=== PATIENT | male | born 1930 | race Caucasian/White ===

== ENCOUNTER 2018-11-03 11:16 | Inpatient (IN) | payer MEDICARE, OTHER, BC ==
[2018-11-03] MEDS: SOD CHLORIDE 0.9% 500 ML IV (11:47)
[2018-11-03 11:52] LABS: ADD MAN DIFF? NO
[2018-11-03 11:54] LABS: WHITE BLOOD COUNT 15.4 10^3/ul (4.8-10.8)
[2018-11-03 11:54] LABS: ABNORMAL IP MESSAGE 1; BASOPHIL # 0.1 10^3/ul (0.0-0.1); BASOPHILS % 0.5 % (0.0-2.0); HEMATOCRIT 34.2 % (42.0-52.0); LYMPHOCYTES # 0.4 10^3/ul (0.8-2.9); LYMPHOCYTES % 2.3 % (15.0-51.0); MEAN CORPUSCULAR HEMOGLOBIN 32.1 pg (29.0-33.0); MEAN CORPUSCULAR HGB CONC 32.2 g/dl (32.0-37.0); MEAN CORPUSCULAR VOLUME 99.7 fl (82.0-101.0); MEAN PLATELET VOLUME 10.6 fl (7.4-10.4); MONOCYTES % 6.2 % (0.0-11.0); NEUTROPHIL # 13.9 10^3/ul (1.6-7.5); NEUTROPHILS % 90.1 % (39.0-77.0); PLATELET COUNT 119 10^3/UL (140-415); POSITIVE DIFF @See below; RED BLOOD COUNT 3.43 10^6/ul (4.70-6.10); RED CELL DISTRIBUTION WIDTH 17.4 % (11.5-14.5)
[2018-11-03 12:12] LABS: ANION GAP 9 (5-13); BLOOD UREA NITROGEN 37 mg/dl (7-20); CALCIUM 8.7 mg/dl (8.4-10.2); CARBON DIOXIDE 19 mmol/L (21-31); CHLORIDE 109 mmol/L (97-110); CREATININE 2.25 mg/dl (0.61-1.24); GLUCOSE 133 mg/dl (70-220); SODIUM 137 mmol/L (135-144)
[2018-11-03 12:24] LABS: TROPONIN-I 0.021 ng/ml (0.000-0.120)
[2018-11-03] MEDS: METOPROLOL 5 MG INJ IV ×3 (13:02→13:10)
[2018-11-03] MEDS ORDERED: ONDANSETRON 4 MG INJ IV (14:00)
[2018-11-03 16:43] LABS: FREE T4 (FREE THYROXINE) 1.09 ng/dl (0.85-1.93)
[2018-11-03] MEDS: ACETAMINOPHEN 325 MG TAB PO (18:20)
[2018-11-03] MEDS ORDERED: METOPROLOL 25 MG TAB PO (21:00)
[2018-11-03] MEDS: DILTIAZEM-D5W 125MG/125ML DRIP 125 ML IV (21:35)
[2018-11-03] MEDS: DEXTROSE 5%-0.45% NACL 1,000 ML IV (21:35)
[2018-11-03] MEDS: ATORVASTATIN 10 MG TAB PO (21:53)
[2018-11-03] MEDS: TAMSULOSIN (SR) 0.4 MG CAP PO (21:54)
[2018-11-03] MEDS: metroNIDAZOLE 250 MG TAB PO (21:54)
[2018-11-03] MEDS: CYANOCOBALAMIN 100 MCG TAB PO (22:00)
[2018-11-03] MEDS: FINASTERIDE 5 MG TAB PO (22:00)
[2018-11-03] MEDS: ALLOPURINOL 100 MG TAB PO (22:00)
[2018-11-04 05:33] LABS: WHITE BLOOD COUNT 10.8 10^3/ul (4.8-10.8)
[2018-11-04 05:33] LABS: HEMATOCRIT 28.3 % (42.0-52.0); MEAN CORPUSCULAR HEMOGLOBIN 31.7 pg (29.0-33.0); MEAN CORPUSCULAR HGB CONC 31.8 g/dl (32.0-37.0); MEAN CORPUSCULAR VOLUME 99.6 fl (82.0-101.0); MEAN PLATELET VOLUME 10.6 fl (7.4-10.4); PLATELET COUNT 105 10^3/UL (140-415); POSITIVE DIFF @See below; RED BLOOD COUNT 2.84 10^6/ul (4.70-6.10); RED CELL DISTRIBUTION WIDTH 17.4 % (11.5-14.5)
[2018-11-04 05:49] LABS: ADD MAN DIFF? YES
[2018-11-04 06:16] LABS: ANION GAP 4 (5-13); BLOOD UREA NITROGEN 43 mg/dl (7-20); CALCIUM 8.1 mg/dl (8.4-10.2); CARBON DIOXIDE 21 mmol/L (21-31); CHLORIDE 111 mmol/L (97-110); CREATININE 2.49 mg/dl (0.61-1.24); GLUCOSE 157 mg/dl (70-220); MAGNESIUM 1.7 mg/dl (1.7-2.5); POTASSIUM 3.2 mmol/L (3.5-5.1); SODIUM 136 mmol/L (135-144)
[2018-11-04 06:22] LABS: TROPONIN-I 0.039 ng/ml (0.000-0.120)
[2018-11-04 06:28] LABS: FREE T4 (FREE THYROXINE) 0.86 ng/dl (0.85-1.93)
[2018-11-04 07:39] LABS: ANISOCYTOSIS 1+ (0-0); BAND NEUTROPHILS #M 3.7 10^3/ul (0.0-0.6); BAND NEUTROPHILS % (M) 35 % (0-4); BASOPHIL #M 0.2 10^3/ul (0.0-0.0); BASOPHILS % (M) 2 % (0-2); EOSINOPHILS % (M) 1 % (0-7); LYMPHOCYTES #M 0.8 10^3/ul (0.8-2.9); LYMPHOCYTES % (M) 8 % (15-51); MICROCYTOSIS 1+ (0-0); MONOCYTE #M 0.7 10^3/ul (0.3-0.9); MONOCYTES % (M) 7 % (0-11); PLATELET ESTIMATE NORMAL; POIKILOCYTOSIS 1+ (0-0); POLYCHROMASIA 2+ (0-0); REACTIVE LYMPHOCYTES #M 0.1 10^3/ul (0.0-0.0); REACTIVE LYMPHOCYTES% (M) 1 % (0-0); SEG NEUT #M 5.4 10^3/ul (1.6-7.5); SEGMENTED NEUTROPHILS (M) % 46 % (39-77); SMUDGE%M 3 % (0-0)
[2018-11-04] MEDS: DEXTROSE 5%-0.45% NACL 1,000 ML IV ×3 (08:20→20:53)
[2018-11-04] MEDS: CYANOCOBALAMIN 100 MCG TAB PO (08:56)
[2018-11-04] MEDS: metroNIDAZOLE 250 MG TAB PO (08:56)
[2018-11-04] MEDS: FINASTERIDE 5 MG TAB PO (08:56)
[2018-11-04] MEDS: ALLOPURINOL 100 MG TAB PO (08:56)
[2018-11-04] MEDS: DEXTROSE 5% IV (10:45)
[2018-11-04] MEDS: WATER IV (10:45)
[2018-11-04] MEDS: MAGNESIUM SULFATE 3 GM in DEXTROSE 5% 100 ML IVPB (11:44)
[2018-11-04] MEDS: POTASSIUM CHLORIDE 50 ML IVPB ×3 (12:38→15:50)
[2018-11-04] MEDS ORDERED: metroNIDAZOLE 250 MG TAB PO (13:00)
[2018-11-04] MEDS ORDERED: metroNIDAZOLE 500 MG TAB PO (13:00)
[2018-11-04] MEDS: APIXABAN 5 MG TABLET PO ×2 (13:00→20:32)
[2018-11-04] MEDS: ATORVASTATIN 10 MG TAB PO (20:32)
[2018-11-04] MEDS: FIDAXOMICIN 200 MG TABLET PO (20:32)
[2018-11-04] MEDS: TAMSULOSIN (SR) 0.4 MG CAP PO (20:32)
[2018-11-04] MEDS: METOPROLOL 25 MG TAB PO (20:32)
[2018-11-04] MEDS: L ACIDOPHIL/B LACTIS/B LONGUM CAPSULE PO (20:53)
[2018-11-05] MEDS: DEXTROSE 5%-0.45% NACL 1,000 ML IV (05:59)
[2018-11-05 06:20] LABS: HEMATOCRIT 28.9 % (42.0-52.0); HEMOGLOBIN 9.4 g/dl (14.0-18.0); MEAN CORPUSCULAR HEMOGLOBIN 32.2 pg (29.0-33.0); MEAN CORPUSCULAR HGB CONC 32.5 g/dl (32.0-37.0); PLATELET COUNT 128 10^3/UL (140-415); POSITIVE DIFF @See below; RED BLOOD COUNT 2.92 10^6/ul (4.70-6.10); RED CELL DISTRIBUTION WIDTH 17.4 % (11.5-14.5)
[2018-11-05 06:20] LABS: WHITE BLOOD COUNT 10.3 10^3/ul (4.8-10.8)
[2018-11-05 06:42] LABS: ADD MAN DIFF? YES
[2018-11-05 06:54] LABS: ANION GAP 9 (5-13); BLOOD UREA NITROGEN 40 mg/dl (7-20); CALCIUM 8.7 mg/dl (8.4-10.2); CARBON DIOXIDE 19 mmol/L (21-31); CHLORIDE 108 mmol/L (97-110); GLUCOSE 130 mg/dl (70-220); MAGNESIUM 2.6 mg/dl (1.7-2.5); POTASSIUM 3.5 mmol/L (3.5-5.1); SODIUM 136 mmol/L (135-144)
[2018-11-05 07:03] LABS: IMMUNOGLOBULIN G 636 mg/dl (700-1600)
[2018-11-05 07:47] LABS: ANISOCYTOSIS 1+ (0-0); BAND NEUTROPHILS #M 2.1 10^3/ul (0.0-0.6); BAND NEUTROPHILS % (M) 21 % (0-4); BURR CELLS 1+ (0-0); ELLIPTO 1+ (0-0); EOSINOPHILS % (M) 5 % (0-7); LYMPHOCYTES #M 0.3 10^3/ul (0.8-2.9); LYMPHOCYTES % (M) 3 % (15-51); METAMYELOCYTES #M 0.1 10^3/ul (0.0-0.0); METAMYELOCYTES %M 1 % (0-0); MICROCYTOSIS 1+ (0-0); MONOCYTE #M 0.4 10^3/ul (0.3-0.9); MONOCYTES % (M) 4 % (0-11); OVALOCYTES 1+ (0-0); PLATELET ESTIMATE DECREASED; POIKILOCYTOSIS 3+ (0-0); POLYCHROMASIA 1+ (0-0); REACTIVE LYMPHOCYTES #M 0.1 10^3/ul (0.0-0.0); REACTIVE LYMPHOCYTES% (M) 1 % (0-0); SEG NEUT #M 6.9 10^3/ul (1.6-7.5); SEGMENTED NEUTROPHILS (M) % 65 % (39-77); SMUDGE%M 1 % (0-0)
[2018-11-05] MEDS: L ACIDOPHIL/B LACTIS/B LONGUM CAPSULE PO ×2 (08:51→20:39)
[2018-11-05] MEDS: FINASTERIDE 5 MG TAB PO (08:51)
[2018-11-05] MEDS: CYANOCOBALAMIN 100 MCG TAB PO (08:52)
[2018-11-05] MEDS: ALLOPURINOL 100 MG TAB PO (08:52)
[2018-11-05] MEDS: APIXABAN 5 MG TABLET PO ×2 (08:52→20:40)
[2018-11-05] MEDS: FIDAXOMICIN 200 MG TABLET PO ×2 (08:52→20:39)
[2018-11-05] MEDS: METOPROLOL 25 MG TAB PO ×2 (08:52→20:43)
[2018-11-05] MEDS: D5-0.2 NACL + KCL 20 MEQ 1,000 ML IV (11:00)
[2018-11-05] MEDS: ATORVASTATIN 10 MG TAB PO (20:40)
[2018-11-05] MEDS: TAMSULOSIN (SR) 0.4 MG CAP PO (20:40)
[2018-11-06] MEDS: D5-0.2 NACL + KCL 20 MEQ 1,000 ML IV ×2 (01:10→13:40)
[2018-11-06 06:04] LABS: ADD MAN DIFF? NO
[2018-11-06 06:09] LABS: BASOPHIL # 0.1 10^3/ul (0.0-0.1); BASOPHILS % 0.8 % (0.0-2.0); EOSINOPHILS # 0.3 10^3/ul (0.0-0.5); EOSINOPHILS % 4.3 % (0.0-7.0); HEMATOCRIT 28.3 % (42.0-52.0); HEMOGLOBIN 9.4 g/dl (14.0-18.0); LYMPHOCYTES # 0.6 10^3/ul (0.8-2.9); LYMPHOCYTES % 7.8 % (15.0-51.0); MEAN CORPUSCULAR HEMOGLOBIN 32.2 pg (29.0-33.0); MEAN CORPUSCULAR HGB CONC 33.2 g/dl (32.0-37.0); MEAN CORPUSCULAR VOLUME 96.9 fl (82.0-101.0); MEAN PLATELET VOLUME 11.3 fl (7.4-10.4); MONOCYTE # 0.6 10^3/ul (0.3-0.9); MONOCYTES % 7.3 % (0.0-11.0); NEUTROPHIL # 6.3 10^3/ul (1.6-7.5); PLATELET COUNT 142 10^3/UL (140-415); RED BLOOD COUNT 2.92 10^6/ul (4.70-6.10)
[2018-11-06 06:28] LABS: ANION GAP 8 (5-13); BLOOD UREA NITROGEN 30 mg/dl (7-20); CALCIUM 8.4 mg/dl (8.4-10.2); CARBON DIOXIDE 20 mmol/L (21-31); CHLORIDE 107 mmol/L (97-110); CREATININE 2.14 mg/dl (0.61-1.24); GLUCOSE 123 mg/dl (70-220); POTASSIUM 3.1 mmol/L (3.5-5.1); SODIUM 135 mmol/L (135-144)
[2018-11-06] MEDS: METOPROLOL 25 MG TAB PO ×2 (08:58→20:30)
[2018-11-06] MEDS: FINASTERIDE 5 MG TAB PO (08:58)
[2018-11-06] MEDS: ALLOPURINOL 100 MG TAB PO (08:58)
[2018-11-06] MEDS: FIDAXOMICIN 200 MG TABLET PO ×2 (08:59→20:20)
[2018-11-06] MEDS: CYANOCOBALAMIN 100 MCG TAB PO (09:00)
[2018-11-06] MEDS: APIXABAN 5 MG TABLET PO ×2 (09:00→20:21)
[2018-11-06] MEDS: POTASSIUM CHLORIDE 50 ML IVPB ×4 (09:04→15:17)
[2018-11-06] MEDS: L ACIDOPHIL/B LACTIS/B LONGUM CAPSULE PO ×2 (09:21→20:20)
[2018-11-06] MEDS ORDERED: POTASSIUM CHLORIDE 100 ML IVPB (09:30)
[2018-11-06] MEDS: TAMSULOSIN (SR) 0.4 MG CAP PO (20:21)
[2018-11-06] MEDS: ATORVASTATIN 10 MG TAB PO (20:21)
[2018-11-07 05:57] LABS: ADD MAN DIFF? NO
[2018-11-07] MEDS: D5-0.2 NACL + KCL 20 MEQ 1,000 ML IV ×2 (06:02→10:56)
[2018-11-07 06:12] LABS: BASOPHIL # 0.1 10^3/ul (0.0-0.1); BASOPHILS % 0.7 % (0.0-2.0); EOSINOPHILS # 0.3 10^3/ul (0.0-0.5); EOSINOPHILS % 3.7 % (0.0-7.0); HEMATOCRIT 28.7 % (42.0-52.0); HEMOGLOBIN 9.6 g/dl (14.0-18.0); LYMPHOCYTES # 0.8 10^3/ul (0.8-2.9); LYMPHOCYTES % 10.3 % (15.0-51.0); MEAN CORPUSCULAR HEMOGLOBIN 32.3 pg (29.0-33.0); MEAN CORPUSCULAR HGB CONC 33.4 g/dl (32.0-37.0); MEAN CORPUSCULAR VOLUME 96.6 fl (82.0-101.0); MEAN PLATELET VOLUME 10.4 fl (7.4-10.4); MONOCYTE # 0.6 10^3/ul (0.3-0.9); MONOCYTES % 8.5 % (0.0-11.0); NEUTROPHIL # 5.6 10^3/ul (1.6-7.5); NEUTROPHILS % 75.2 % (39.0-77.0); PLATELET COUNT 154 10^3/UL (140-415); RED BLOOD COUNT 2.97 10^6/ul (4.70-6.10)
[2018-11-07 06:12] LABS: WHITE BLOOD COUNT 7.5 10^3/ul (4.8-10.8)
[2018-11-07 06:23] LABS: ANION GAP 8 (5-13); BLOOD UREA NITROGEN 25 mg/dl (7-20); CALCIUM 8.3 mg/dl (8.4-10.2); CARBON DIOXIDE 19 mmol/L (21-31); CHLORIDE 109 mmol/L (97-110); CREATININE 1.91 mg/dl (0.61-1.24); GLUCOSE 125 mg/dl (70-220); POTASSIUM 3.4 mmol/L (3.5-5.1); SODIUM 136 mmol/L (135-144)
[2018-11-07] MEDS: CYANOCOBALAMIN 100 MCG TAB PO (08:34)
[2018-11-07] MEDS: FIDAXOMICIN 200 MG TABLET PO ×2 (08:35→21:37)
[2018-11-07] MEDS: L ACIDOPHIL/B LACTIS/B LONGUM CAPSULE PO ×2 (08:35→21:37)
[2018-11-07] MEDS: FINASTERIDE 5 MG TAB PO (08:35)
[2018-11-07] MEDS: ALLOPURINOL 100 MG TAB PO (08:36)
[2018-11-07] MEDS: APIXABAN 5 MG TABLET PO ×2 (08:37→21:37)
[2018-11-07] MEDS: METOPROLOL 25 MG TAB PO ×2 (08:38→21:37)
[2018-11-07] MEDS: CHOLESTYRAMINE 4 GM PACKET PO (10:55)
[2018-11-07] MEDS: POTASSIUM CHLORIDE 40 MEQ in DEXTROSE 5%-0.225% NACL 1,000 ML IV (16:01)
[2018-11-07] MEDS: TAMSULOSIN (SR) 0.4 MG CAP PO (21:37)
[2018-11-07] MEDS: ATORVASTATIN 10 MG TAB PO (21:37)
[2018-11-08] MEDS: CHOLESTYRAMINE 4 GM PACKET PO (08:18)
[2018-11-08] MEDS: FINASTERIDE 5 MG TAB PO (08:18)
[2018-11-08] MEDS: APIXABAN 5 MG TABLET PO ×2 (08:18→20:53)
[2018-11-08] MEDS: FIDAXOMICIN 200 MG TABLET PO ×2 (08:18→20:53)
[2018-11-08] MEDS: POTASSIUM CHLORIDE 40 MEQ in DEXTROSE 5%-0.225% NACL 1,000 ML IV ×2 (08:19→16:07)
[2018-11-08] MEDS: METOPROLOL 25 MG TAB PO ×2 (08:19→20:54)
[2018-11-08] MEDS: L ACIDOPHIL/B LACTIS/B LONGUM CAPSULE PO ×2 (08:19→20:53)
[2018-11-08] MEDS: CYANOCOBALAMIN 100 MCG TAB PO (08:19)
[2018-11-08] MEDS: ALLOPURINOL 100 MG TAB PO (08:19)
[2018-11-08] MEDS: VANCOMYCIN HCL 250 MG/5ML POSYG PO ×2 (11:17→17:01)
[2018-11-08] MEDS: ESCITALOPRAM 10 MG TAB PO (16:03)
[2018-11-08] MEDS: ACETAMINOPHEN 325 MG TAB PO (16:04)
[2018-11-08] MEDS: TAMSULOSIN (SR) 0.4 MG CAP PO (20:53)
[2018-11-08] MEDS: ATORVASTATIN 10 MG TAB PO (20:53)
[2018-11-09] MEDS: VANCOMYCIN HCL 250 MG/5ML POSYG PO ×4 (00:23→18:09)
[2018-11-09] MEDS: POTASSIUM CHLORIDE 40 MEQ in DEXTROSE 5%-0.225% NACL 1,000 ML IV (05:37)
[2018-11-09 06:10] LABS: ADD MAN DIFF? NO
[2018-11-09 06:19] LABS: BASOPHIL # 0.1 10^3/ul (0.0-0.1); BASOPHILS % 0.6 % (0.0-2.0); EOSINOPHILS # 0.2 10^3/ul (0.0-0.5); EOSINOPHILS % 1.9 % (0.0-7.0); HEMATOCRIT 34.1 % (42.0-52.0); HEMOGLOBIN 11.3 g/dl (14.0-18.0); LYMPHOCYTES # 1.1 10^3/ul (0.8-2.9); LYMPHOCYTES % 12.1 % (15.0-51.0); MEAN CORPUSCULAR HEMOGLOBIN 32.1 pg (29.0-33.0); MEAN CORPUSCULAR HGB CONC 33.1 g/dl (32.0-37.0); MEAN CORPUSCULAR VOLUME 96.9 fl (82.0-101.0); MEAN PLATELET VOLUME 10.5 fl (7.4-10.4); MONOCYTE # 1.3 10^3/ul (0.3-0.9); MONOCYTES % 13.9 % (0.0-11.0); NEUTROPHILS % 66.5 % (39.0-77.0); PLATELET COUNT 206 10^3/UL (140-415); RED BLOOD COUNT 3.52 10^6/ul (4.70-6.10); RED CELL DISTRIBUTION WIDTH 17.3 % (11.5-14.5)
[2018-11-09 06:54] LABS: ANION GAP 12 (5-13); BLOOD UREA NITROGEN 21 mg/dl (7-20); CALCIUM 8.9 mg/dl (8.4-10.2); CARBON DIOXIDE 20 mmol/L (21-31); CHLORIDE 102 mmol/L (97-110); CREATININE 1.78 mg/dl (0.61-1.24); GLUCOSE 116 mg/dl (70-220); POTASSIUM 4.3 mmol/L (3.5-5.1); SODIUM 134 mmol/L (135-144)
[2018-11-09] MEDS: ALLOPURINOL 100 MG TAB PO (10:10)
[2018-11-09] MEDS: ESCITALOPRAM 10 MG TAB PO (10:11)
[2018-11-09] MEDS: CYANOCOBALAMIN 100 MCG TAB PO (10:11)
[2018-11-09] MEDS: APIXABAN 5 MG TABLET PO ×2 (10:11→20:28)
[2018-11-09] MEDS: CHOLESTYRAMINE 4 GM PACKET PO (10:12)
[2018-11-09] MEDS: L ACIDOPHIL/B LACTIS/B LONGUM CAPSULE PO ×2 (10:12→20:27)
[2018-11-09] MEDS: METOPROLOL 25 MG TAB PO ×2 (10:12→20:28)
[2018-11-09] MEDS: FIDAXOMICIN 200 MG TABLET PO ×2 (10:21→20:34)
[2018-11-09] MEDS: FINASTERIDE 5 MG TAB PO (10:21)
[2018-11-09] MEDS: D5-0.2 NACL + KCL 20 MEQ 1,000 ML IV ×3 (11:00→20:29)
[2018-11-09] MEDS: TAMSULOSIN (SR) 0.4 MG CAP PO (20:27)
[2018-11-09] MEDS: ATORVASTATIN 10 MG TAB PO (20:28)
[2018-11-10] MEDS: VANCOMYCIN HCL 250 MG/5ML POSYG PO ×4 (05:44→17:47)
[2018-11-10 05:52] LABS: WHITE BLOOD COUNT 7.1 10^3/ul (4.8-10.8)
[2018-11-10 05:52] LABS: ABNORMAL IP MESSAGE 1; HEMATOCRIT 28.9 % (42.0-52.0); HEMOGLOBIN 9.6 g/dl (14.0-18.0); MEAN CORPUSCULAR HEMOGLOBIN 31.9 pg (29.0-33.0); MEAN CORPUSCULAR HGB CONC 33.2 g/dl (32.0-37.0); MEAN PLATELET VOLUME 10.4 fl (7.4-10.4); PLATELET COUNT 205 10^3/UL (140-415); POSITIVE DIFF @See below; RED BLOOD COUNT 3.01 10^6/ul (4.70-6.10); RED CELL DISTRIBUTION WIDTH 16.9 % (11.5-14.5)
[2018-11-10 06:16] LABS: ADD MAN DIFF? YES
[2018-11-10 06:26] LABS: ANION GAP 10 (5-13); BLOOD UREA NITROGEN 20 mg/dl (7-20); CALCIUM 8.5 mg/dl (8.4-10.2); CARBON DIOXIDE 19 mmol/L (21-31); CHLORIDE 104 mmol/L (97-110); CREATININE 1.65 mg/dl (0.61-1.24); GLUCOSE 117 mg/dl (70-220); MAGNESIUM 1.8 mg/dl (1.7-2.5); SODIUM 133 mmol/L (135-144)
[2018-11-10 08:49] LABS: ANISOCYTOSIS 1+ (0-0); BAND NEUTROPHILS % (M) 1 % (0-4); BASOPHILS % (M) 1 % (0-2); BURR CELLS 2+ (0-0); EOSINOPHILS % (M) 5 % (0-7); GIANT THROMBO% (M) 3 % (0-0); LYMPHOCYTES #M 0.4 10^3/ul (0.8-2.9); LYMPHOCYTES % (M) 7 % (15-51); METAMYELOCYTES #M 0.1 10^3/ul (0.0-0.0); METAMYELOCYTES %M 2 % (0-0); MONOCYTE #M 0.2 10^3/ul (0.3-0.9); MONOCYTES % (M) 4 % (0-11); MYELOCYTES % (M) 1 % (0-0); OVALOCYTES 1+ (0-0); PLATELET ESTIMATE NORMAL; POIKILOCYTOSIS 3+ (0-0); POLYCHROMASIA 1+ (0-0); REACTIVE LYMPHOCYTES #M 0.1 10^3/ul (0.0-0.0); REACTIVE LYMPHOCYTES% (M) 2 % (0-0); SEG NEUT #M 5.5 10^3/ul (1.6-7.5); SEGMENTED NEUTROPHILS (M) % 77 % (39-77); SMUDGE%M 19 % (0-0)
[2018-11-10] MEDS: APIXABAN 5 MG TABLET PO ×2 (09:29→20:24)
[2018-11-10] MEDS: FIDAXOMICIN 200 MG TABLET PO ×2 (09:29→20:23)
[2018-11-10] MEDS: ESCITALOPRAM 10 MG TAB PO (09:29)
[2018-11-10] MEDS: CYANOCOBALAMIN 100 MCG TAB PO (09:29)
[2018-11-10] MEDS: CHOLESTYRAMINE 4 GM PACKET PO (09:29)
[2018-11-10] MEDS: ALLOPURINOL 100 MG TAB PO (09:30)
[2018-11-10] MEDS: L ACIDOPHIL/B LACTIS/B LONGUM CAPSULE PO ×2 (09:30→20:23)
[2018-11-10] MEDS: METOPROLOL 25 MG TAB PO ×2 (09:30→20:25)
[2018-11-10] MEDS: FINASTERIDE 5 MG TAB PO (09:31)
[2018-11-10] MEDS: D5-0.2 NACL + KCL 20 MEQ 1,000 ML IV ×2 (12:00→20:23)
[2018-11-10] MEDS: MAGNESIUM SULFATE 2 GM/50 ML 50 ML IVPB (15:11)
[2018-11-10] MEDS: ATORVASTATIN 10 MG TAB PO (20:24)
[2018-11-10] MEDS: TAMSULOSIN (SR) 0.4 MG CAP PO (20:24)
[2018-11-11] MEDS: VANCOMYCIN HCL 250 MG/5ML POSYG PO ×4 (00:21→17:39)
[2018-11-11 06:41] LABS: ANION GAP 13 (5-13); BLOOD UREA NITROGEN 17 mg/dl (7-20); CALCIUM 8.5 mg/dl (8.4-10.2); CARBON DIOXIDE 17 mmol/L (21-31); CHLORIDE 104 mmol/L (97-110); CREATININE 1.63 mg/dl (0.61-1.24); GLUCOSE 122 mg/dl (70-220); POTASSIUM 4.2 mmol/L (3.5-5.1); SODIUM 134 mmol/L (135-144)
[2018-11-11] MEDS: FIDAXOMICIN 200 MG TABLET PO ×2 (08:59→21:00)
[2018-11-11] MEDS: ALLOPURINOL 100 MG TAB PO (08:59)
[2018-11-11] MEDS: METOPROLOL 25 MG TAB PO ×3 (09:00→21:29)
[2018-11-11] MEDS: ESCITALOPRAM 10 MG TAB PO (09:00)
[2018-11-11] MEDS: CYANOCOBALAMIN 100 MCG TAB PO (09:01)
[2018-11-11] MEDS: APIXABAN 5 MG TABLET PO ×2 (09:01→21:29)
[2018-11-11] MEDS: CHOLESTYRAMINE 4 GM PACKET PO (09:01)
[2018-11-11] MEDS: FINASTERIDE 5 MG TAB PO (09:01)
[2018-11-11] MEDS: L ACIDOPHIL/B LACTIS/B LONGUM CAPSULE PO ×2 (09:03→21:28)
[2018-11-11] MEDS: D5-0.2 NACL + KCL 20 MEQ 1,000 ML IV (14:15)
[2018-11-11] MEDS: ATORVASTATIN 10 MG TAB PO (21:28)
[2018-11-11] MEDS: TAMSULOSIN (SR) 0.4 MG CAP PO (21:28)
[2018-11-12] MEDS: VANCOMYCIN HCL 250 MG/5ML POSYG PO ×4 (00:25→17:38)
[2018-11-12] MEDS: D5-0.2 NACL + KCL 20 MEQ 1,000 ML IV ×2 (03:00→09:59)
[2018-11-12 07:05] LABS: ADD MAN DIFF? NO
[2018-11-12 07:07] LABS: WHITE BLOOD COUNT 6.9 10^3/ul (4.8-10.8)
[2018-11-12 07:07] LABS: BASOPHILS % 0.6 % (0.0-2.0); EOSINOPHILS # 0.2 10^3/ul (0.0-0.5); EOSINOPHILS % 2.6 % (0.0-7.0); HEMATOCRIT 29.9 % (42.0-52.0); HEMOGLOBIN 9.9 g/dl (14.0-18.0); LYMPHOCYTES # 0.9 10^3/ul (0.8-2.9); LYMPHOCYTES % 12.6 % (15.0-51.0); MEAN CORPUSCULAR HGB CONC 33.1 g/dl (32.0-37.0); MEAN CORPUSCULAR VOLUME 96.8 fl (82.0-101.0); MEAN PLATELET VOLUME 10.2 fl (7.4-10.4); MONOCYTE # 0.4 10^3/ul (0.3-0.9); MONOCYTES % 5.5 % (0.0-11.0); NEUTROPHIL # 5.2 10^3/ul (1.6-7.5); NEUTROPHILS % 74.8 % (39.0-77.0); PLATELET COUNT 255 10^3/UL (140-415); RED BLOOD COUNT 3.09 10^6/ul (4.70-6.10); RED CELL DISTRIBUTION WIDTH 16.9 % (11.5-14.5)
[2018-11-12 07:42] LABS: ANION GAP 12 (5-13); BLOOD UREA NITROGEN 16 mg/dl (7-20); CALCIUM 8.7 mg/dl (8.4-10.2); CARBON DIOXIDE 18 mmol/L (21-31); CHLORIDE 105 mmol/L (97-110); CREATININE 1.55 mg/dl (0.61-1.24); GLUCOSE 118 mg/dl (70-220); POTASSIUM 4.7 mmol/L (3.5-5.1); SODIUM 135 mmol/L (135-144)
[2018-11-12] MEDS: FINASTERIDE 5 MG TAB PO (08:06)
[2018-11-12] MEDS: ESCITALOPRAM 10 MG TAB PO (08:06)
[2018-11-12] MEDS: FIDAXOMICIN 200 MG TABLET PO ×2 (08:06→20:07)
[2018-11-12] MEDS: ALLOPURINOL 100 MG TAB PO (08:06)
[2018-11-12] MEDS: L ACIDOPHIL/B LACTIS/B LONGUM CAPSULE PO ×2 (08:06→20:07)
[2018-11-12] MEDS: APIXABAN 5 MG TABLET PO ×2 (08:07→20:07)
[2018-11-12] MEDS: METOPROLOL 25 MG TAB PO ×2 (08:07→20:08)
[2018-11-12] MEDS: CYANOCOBALAMIN 100 MCG TAB PO (08:07)
[2018-11-12] MEDS: CHOLESTYRAMINE 4 GM PACKET PO (09:59)
[2018-11-12 10:49] LABS: ANISOCYTOSIS 1+ (0-0); BAND NEUTROPHILS #M 0.1 10^3/ul (0.0-0.6); BAND NEUTROPHILS % (M) 2 % (0-4); EOSINOPHILS % (M) 6 % (0-7); GIANT THROMBO% (M) 1 % (0-0); LYMPHOCYTES #M 0.4 10^3/ul (0.8-2.9); LYMPHOCYTES % (M) 7 % (15-51); METAMYELOCYTES %M 1 % (0-0); MONOCYTE #M 0.2 10^3/ul (0.3-0.9); MONOCYTES % (M) 4 % (0-11); MYELOCYTES % (M) 1 % (0-0); PLATELET ESTIMATE NORMAL; SEG NEUT #M 5.5 10^3/ul (1.6-7.5); SEGMENTED NEUTROPHILS (M) % 79 % (39-77); SMUDGE%M 6 % (0-0)
[2018-11-12] MEDS: TAMSULOSIN (SR) 0.4 MG CAP PO (20:06)
[2018-11-12] MEDS: ATORVASTATIN 10 MG TAB PO (20:07)
[2018-11-13] MEDS: VANCOMYCIN HCL 250 MG/5ML POSYG PO ×5 (00:01→23:19)
[2018-11-13 05:56] LABS: ADD MAN DIFF? NO
[2018-11-13 06:09] LABS: WHITE BLOOD COUNT 7.2 10^3/ul (4.8-10.8)
[2018-11-13 06:09] LABS: BASOPHIL # 0.1 10^3/ul (0.0-0.1); BASOPHILS % 0.7 % (0.0-2.0); EOSINOPHILS # 0.2 10^3/ul (0.0-0.5); EOSINOPHILS % 2.2 % (0.0-7.0); HEMATOCRIT 28.8 % (42.0-52.0); HEMOGLOBIN 9.5 g/dl (14.0-18.0); LYMPHOCYTES # 0.8 10^3/ul (0.8-2.9); LYMPHOCYTES % 11.7 % (15.0-51.0); MEAN CORPUSCULAR HEMOGLOBIN 31.8 pg (29.0-33.0); MEAN CORPUSCULAR VOLUME 96.3 fl (82.0-101.0); MEAN PLATELET VOLUME 9.8 fl (7.4-10.4); MONOCYTE # 0.4 10^3/ul (0.3-0.9); MONOCYTES % 6.1 % (0.0-11.0); NEUTROPHIL # 5.6 10^3/ul (1.6-7.5); NEUTROPHILS % 77.2 % (39.0-77.0); PLATELET COUNT 233 10^3/UL (140-415); RED BLOOD COUNT 2.99 10^6/ul (4.70-6.10); RED CELL DISTRIBUTION WIDTH 16.6 % (11.5-14.5)
[2018-11-13 06:37] LABS: ANION GAP 5 (5-13); BLOOD UREA NITROGEN 19 mg/dl (7-20); CALCIUM 8.7 mg/dl (8.4-10.2); CARBON DIOXIDE 21 mmol/L (21-31); CHLORIDE 109 mmol/L (97-110); CREATININE 1.68 mg/dl (0.61-1.24); GLUCOSE 97 mg/dl (70-220); POTASSIUM 4.5 mmol/L (3.5-5.1); SODIUM 135 mmol/L (135-144)
[2018-11-13] MEDS: CHOLESTYRAMINE 4 GM PACKET PO (08:23)
[2018-11-13] MEDS: ALLOPURINOL 100 MG TAB PO (08:23)
[2018-11-13] MEDS: APIXABAN 5 MG TABLET PO ×2 (08:23→20:38)
[2018-11-13] MEDS: ESCITALOPRAM 10 MG TAB PO (08:23)
[2018-11-13] MEDS: L ACIDOPHIL/B LACTIS/B LONGUM CAPSULE PO ×2 (08:23→20:38)
[2018-11-13] MEDS: FINASTERIDE 5 MG TAB PO (08:23)
[2018-11-13] MEDS: CYANOCOBALAMIN 100 MCG TAB PO (08:23)
[2018-11-13] MEDS: FIDAXOMICIN 200 MG TABLET PO ×2 (08:24→20:38)
[2018-11-13] MEDS: METOPROLOL 25 MG TAB PO ×2 (08:24→20:39)
[2018-11-13] MEDS: ATORVASTATIN 10 MG TAB PO (20:38)
[2018-11-13] MEDS: TAMSULOSIN (SR) 0.4 MG CAP PO (20:39)
[2018-11-14] MEDS: VANCOMYCIN HCL 250 MG/5ML POSYG PO ×2 (05:58→12:38)
[2018-11-14] MEDS: APIXABAN 5 MG TABLET PO (09:50)
[2018-11-14] MEDS: CHOLESTYRAMINE 4 GM PACKET PO (09:50)
[2018-11-14] MEDS: ALLOPURINOL 100 MG TAB PO (09:50)
[2018-11-14] MEDS: L ACIDOPHIL/B LACTIS/B LONGUM CAPSULE PO (09:50)
[2018-11-14] MEDS: ESCITALOPRAM 10 MG TAB PO (09:50)
[2018-11-14] MEDS: FINASTERIDE 5 MG TAB PO (09:50)
[2018-11-14] MEDS: CYANOCOBALAMIN 100 MCG TAB PO (09:50)
[2018-11-14] MEDS: FIDAXOMICIN 200 MG TABLET PO (09:51)
[2018-11-14] MEDS: METOPROLOL 25 MG TAB PO (09:52)
== END 2018-11-14 14:40 | disposition home health service (06) | DRG 372 ==
LOC: E/R 11:16 → 6WM 14:23
DX: A04.71 Enterocolitis due to Clostridium difficile, recurrent (principal); C18.9 Malignant neoplasm of colon, unspecified; D80.3 Selective deficiency of immunoglobulin G [IgG] subclasses; I48.91 Unspecified atrial fibrillation; Z95.1 Presence of aortocoronary bypass graft; Z95.5 Presence of coronary angioplasty implant and graft; I10 Essential (primary) hypertension; E78.5 Hyperlipidemia, unspecified; E03.9 Hypothyroidism, unspecified; N40.0 Benign prostatic hyperplasia without lower urinary tract symptoms; M10.9 Gout, unspecified; Z96.641 Presence of right artificial hip joint; M19.90 Unspecified osteoarthritis, unspecified site; G60.0 Hereditary motor and sensory neuropathy; I73.9 Peripheral vascular disease, unspecified; D69.6 Thrombocytopenia, unspecified; D64.9 Anemia, unspecified; F32.9 Major depressive disorder, single episode, unspecified
CPT/HCPCS: 36415; 71045; 80048; 82784; 83735; 84439; 84443; 84484; 85025; 87040; 87075; 87081; 87086; 93005; 93306; 96361; 96374; 97116; 97162; 97530; 99291-25